=== PATIENT | male | born 1955 | race Caucasian/White ===

== ENCOUNTER 2017-05-18 14:18 | Emergency (ER) | payer BC ==
[~2017-05-18] VITALS: Ht 185.4 cm; Wt 98.7 kg
[2017-05-18 14:19] VITALS: TEMP 36.6; Ht 185.4 cm; Wt 98.7 kg
[2017-05-18] MEDS ORDERED: FISH1CAP3 PO (14:31)
[2017-05-18] MEDS ORDERED: GLUC10007 PO (14:31)
[2017-05-18] MEDS ORDERED: BECL1AER5 NAE (14:31)
[2017-05-18] MEDS ORDERED: CYCL0.052 OP (14:31)
[2017-05-18] MEDS ORDERED: MULT-513 PO (14:31)
[2017-05-18] MEDS ORDERED: OMEP40CA41 PO (14:31)
[2017-05-18] MEDS ORDERED: MONT1TAB5 PO (14:31)
[2017-05-18] MEDS ORDERED: FEXO5TAB2 PO (14:31)
[2017-05-18] MEDS ORDERED: ALBU18002 INH (14:31)
[2017-05-18] MEDS ORDERED: FLUT1INH INH (14:31)
[2017-05-18] MEDS ORDERED: SODIUM CHLORIDE 0.9% 1000ML 1,000 ML IV STA (14:41)
[2017-05-18 15:03] LABS: ALT/SGPT 27 U/L (12-78); BLOOD UREA NITROGEN 16 mg/dl (7-18); BUN/CREATININE RATIO 15.7 (10-20); CARBON DIOXIDE 22 mmol/L (21-32); CHLORIDE 106 mmol/L (98-107); CREATININE 0.99 mg/dl (0.60-1.40); GLUCOSE 89 mg/dl (70-99); POTASSIUM 3.9 mmol/L (3.5-5.1); SODIUM 140 mmol/L (136-145)
--- NOTE | 2017-05-18 15:10 | DIAGNOSTIC IMAGING REPORT ---
CHEST ONE VIEW PORTABLE CLINICAL HISTORY: EVALUATE ALTERED MENTAL STATUS/WEAKNESS COMPARISON STUDY: No previous studies for comparison. FINDINGS: The bones soft tissues and hemidiaphragms are normal. The cardiomediastinal silhouette is normal. The lungs are clear. The pulmonary vasculature is normal. IMPRESSION: Negative chest. The above report was generated using voice recognition software. It may contain grammatical, syntax or spelling errors. Electronically signed by: Forrest Watts M.D. 05/18/2017 3:09 PM Dictated Date/Time: 05/18/2017 3:08 PM
[2017-05-18 15:14] LABS: ALKALINE PHOSPHATASE 95 U/L (45-117); AST/SGOT 21 U/L (15-37); CKMB/CK RATIO 0.7 (0-3.0)
[2017-05-18 15:32] LABS: BASO % 0.4 %; BASO ABS # 0.04 K/uL (0-0.2); COMPLETE YES; EOS % 0.9 %; HEMATOCRIT 41.2 % (42-52); IG% 0.6 %; LYMPH % 13.3 %; LYMPH ABS # 1.24 K/uL (1.2-3.4); MEAN CELL VOLUME 89.4 fL (80-100); MEAN CORPUSCULAR HEMOGLOBIN 29.9 pg (25-34); MEAN CORPUSCULAR HGB CONC 33.5 g/dl (32-36); MEAN PLATELET VOLUME 8.8 fL (7.4-10.4); MONO % 8.8 %; PLATELET COUNT 221 K/uL (130-400); RED BLOOD COUNT 4.61 M/uL (4.7-6.1); WHITE BLOOD COUNT 9.35 K/uL (4.8-10.8)
--- NOTE | 2017-05-18 16:03 | EMERGENCY ROOM VISIT NOTE ---
History Report prepared by [place]miraibramon: Marycarmen Cisneros Under the Supervision of: Dr. Adrián Desouza D.O. First contact with patient: 14:38 Chief Complaint: SYNCOPE Stated Complaint: SYNCOPE Nursing Triage Summary: Pt arrives via BLS. Pt at the [employer] [employer], had 5 beers, was boiling clams, sitting on the cooler, had a syncopal event, falling backwards, was caught by another individual, did not strike his head. On falling, the hot water from the clams dropped on his right 2nd and 3rd toes causing a burn. History of Present Illness The patient is a 62 year old male who presents to the Emergency Room with complaints of an episode of syncope beginning just ICE CARVER. The patient sates that he was tailgating today and was drinking 5-6 beers. He reports that he was steaming clams and burnt two of his toes. The patient states that he did have shoes on when he burnt his toes and quickly took his shoes off and put ice on the injury. After sitting down he notes that he did not feel good and began to feel lightheaded. He states that he lost consciousness and was caught by someone. The patient complains of LOC, toe pain, and his head " not feeling right". He denies any nausea, headache, palpitations, cardiac history, and head injury. He notes that he has a history of allergies and GERD. The patient sates that he felt fine this morning and this afternoon up until he burnt his toes. He notes that he has had a sinus headache over the last few days that is not unusual for him. Source of History: patient Onset: just ICE CARVER Position: other (global) Quality: other (syncope) Timing: other (episode) Associated Symptoms: + LOC, No headache, No nausea Note: He complains of toe pain. He denies any palpitations, cardiac history, and head injury. Review of Systems See HPI for pertinent positives & negatives. A total of 10 systems reviewed and were otherwise negative. Past Medical & Surgical Medical Problems: (1) GERD (gastroesophageal reflux disease) (2) Seasonal allergies Family History No pertinent family history stated. Social History Smoking Status: Never Smoker Marital Status: Housing Status: lives with significant other Occupation Status: employed Current/Historical Medications Scheduled Beclomethasone Dipropionate (N (Qnasl), 1 SPRY MAXINE BID Cyclosporine (Ophth) (Restasis), 1 DROP OP BID Fexofenadine-Pseudoephedrine (Adia-D 12 Hour Allergy), 1 TAB PO BID Fish Oil-Cholecalciferol (Fish Oil + D3), 1 CAP PO DAILY Fluticasone Furoate-Vilanterol (Breo Ellipta), 1 PUFF INH DAILY Glucosamine Sulfate (Glucosamine), 1,500 MG PO DAILY Montelukast Sodium (Montelukast Sodium), 1 TAB PO HS Multivitamins/Minerals (Mvi With Minerals), 1 TAB PO DAILY Omeprazole (Prilosec), 40 MG PO HS Scheduled PRN Albuterol Sulfate (Proair Respiclick), 2 PUFF INH BID PRN for ALLERGIC REACTION Allergies Coded Allergies: Penicillins (Verified Allergy, Unknown, HIVES, 05/18/17) Doxycycline (Verified Adverse Reaction, Unknown, GI SYMPTOMS, 05/18/17) Physical Exam Vital Signs Date Time Temp Pulse Resp B/P (MAP) Pulse Ox O2 Delivery O2 Flow Rate FiO2 05/18/17 16:36 78 18 154/84 99 05/18/17 16:02 79 121/81 77 138/92 93 168/98 05/18/17 15:34 78 18 144/85 99 Room Air 05/18/17 14:22 80 05/18/17 14:19 36.6 77 14 130/79 95 Room Air Physical Exam VITAL SIGNS: were reviewed as above. GENERAL:Non-toxic in appearance. SKIN: Warm dry and pink. HEAD: Normocephalic and atraumatic. OROPHARYNX: Is clear and moist NECK: Supple without lymphadenopathy or meningismus. LUNGS: clear. HEART: Regular rate and rhythm. ABDOMEN: Soft and nontender. EXTREMITIES: Warm and well perfused. Right dorsal toes have erythema related to a boiling water burn. The second and third toes dorsally reveal a small amount of blistering. NEUROLOGICALLY: Awake alert and oriented without focal deficit. Cranial nerves 2 -12 are intact. There is no pronator drift. Cerebellar testing is within normal limits. There is no nystagmus. There is no facial droop. Speech is clear. Vision is grossly normal. MUSCULOSKELETAL: Good muscle tone. No evidence of trauma. Medical Decision & Procedures ER Provider Diagnostic Interpretation: X ray results and stated below per my interpretation and radiology interpretation. CHEST ONE VIEW PORTABLE FINDINGS: The bones soft tissues and hemidiaphragms are normal. The cardiomediastinal silhouette is normal. The lungs are clear. The pulmonary vasculature is normal. IMPRESSION: Negative chest. The above report was generated using voice recognition software. It may contain grammatical, syntax or spelling errors. Electronically signed by: Forrest Watts M.D. 05/18/2017 3:09 PM Dictated Date/Time: 05/18/2017 3:08 PM Laboratory Results 05/18/17 15:24 Red Blood Count 4.61, Mean Corpuscular Volume 89.4, Mean Corpuscular Hemoglobin 29.9, Mean Corpuscular Hemoglobin Concent 33.5, Mean Platelet Volume 8.8, Neutrophils (%) (Auto) 76.0, Lymphocytes (%) (Auto) 13.3, Monocytes (%) (Auto) 8.8, Eosinophils (%) (Auto) 0.9, Basophils (%) (Auto) 0.4, Neutrophils # (Auto) 7.11, Lymphocytes # (Auto) 1.24, Monocytes # (Auto) 0.82, Eosinophils # (Auto) 0.08, Basophils # (Auto) 0.04 05/18/17 14:25 Test 05/18/17 14:25 05/18/17 14:41 05/18/17 15:24 Anion Gap 12.0 mmol/L (3-11) Est Creatinine Clear Calc Drug Dose 98.1 ml/min Estimated GFR () 95.5 Estimated GFR (Non- 82.4 BUN/Creatinine Ratio 15.7 (10-20) Calcium Level 9.0 mg/dl (8.5-10.1) Total Bilirubin 0.4 mg/dl (0.2-1) Aspartate Amino Transf (AST/SGOT) 21 U/L (15-37) Alanine Aminotransferase (ALT/SGPT) 27 U/L (12-78) Alkaline Phosphatase 95 U/L (45-117) Total Creatine Kinase 171 U/L (39-308) Creatine Kinase MB 1.2 ng/ml (0.5-3.6) Troponin I < 0.015 ng/ml (0-0.045) Total Protein 7.7 gm/dl (6.4-8.2) Albumin 3.8 gm/dl (3.4-5.0) Globulin 3.9 gm/dl (2.5-4.0) Albumin/Globulin Ratio 1.0 (0.9-2) Lipase 146 U/L (73-393) Thyroid Stimulating Hormone (TSH) 1.170 uIu/ml (0.300-4.500) Creatine Kinase MB Ratio (0-3.0) White Blood Count 9.35 K/uL (4.8-10.8) Red Blood Count 4.61 M/uL (4.7-6.1) Hemoglobin 13.8 g/dL (14.0-18.0) Hematocrit 41.2 % (42-52) Mean Corpuscular Volume 89.4 fL (80-100) Mean Corpuscular Hemoglobin 29.9 pg (25-34) Mean Corpuscular Hemoglobin Concent 33.5 g/dl (32-36) Platelet Count 221 K/uL (130-400) Mean Platelet Volume 8.8 fL (7.4-10.4) Neutrophils (%) (Auto) 76.0 % Lymphocytes (%) (Auto) 13.3 % Monocytes (%) (Auto) 8.8 % Eosinophils (%) (Auto) 0.9 % Basophils (%) (Auto) 0.4 % Neutrophils # (Auto) 7.11 K/uL (1.4-6.5) Lymphocytes # (Auto) 1.24 K/uL (1.2-3.4) Monocytes # (Auto) 0.82 K/uL (0.11-0.59) Eosinophils # (Auto) 0.08 K/uL (0-0.5) Basophils # (Auto) 0.04 K/uL (0-0.2) RDW Standard Deviation 44.7 fL (36.4-46.3) RDW Coefficient of Variation 13.6 % (11.5-14.5) Immature Granulocyte % (Auto) 0.6 % Immature Granulocyte # (Auto) 0.06 K/uL (0.00-0.02) Laboratory results as stated above per my review. Medications Administered Medications (Trade) Dose Ordered Sig/Neda Route Start Time Stop Time Status Last Admin Dose Admin Sodium Chloride 1,000 ml @ 999 mls/hr Q1H1M STAT IV 05/18/17 14:41 05/18/17 15:41 DC 05/18/17 14:55 999 MLS/HR ECG Indication: syncope Rate (beats per minute): 78 Rhythm: sinus rhythm Findings: PVC, no acute ischemic change ED Course 1438: Previous medical records were reviewed. The patient was evaluated in room C6. A complete history and physical examination was performed. 1441: Sodium Chloride 1000 ml @ 999 mls/hr IV. 1629: On reevaluation, the patient is doing well. I discussed the results and findings with the patient. He verbalized agreement of the treatment plan. The patient was discharged home. Medical Decision Differential includes acute coronary syndrome, myocardial infarction, CVA, TIA, anemia, infection, pneumonia, UTI, pyelonephritis, poor nutrition, dehydration, electrolyte disturbance,hypoglycemia. This is a 62-year-old male who presents to the ED with a chief complaint of syncope. The patient reports that he was at the [facility]. He did not have much to drink this morning. He also had some alcohol last night. The patient states that he spilled some hot water on his right foot causing a burn injury to his right toes. Shortly after this, he sat down and he states that he felt funny in the head and subsequently had a syncopal episode. The patient was lowered to the ground. He did not hurt himself. The patient was transported here for evaluation. His vital signs here are normal. His physical exam was unremarkable other than the burn wounds to his right toes on the dorsal aspect of his foot. He has mostly redness and a couple of toes that have some blistering. The patient's exam was otherwise unremarkable. Neurologically he is normal. Laboratory studies including a CBC and complete metabolic panel were normal. Troponin is negative. TSH is normal. Chest x-ray did not show acute disease. An EKG shows a sinus rhythm at a rate of 78 with an occasional PVC. The patient does not have any sensation or sense of the PVC. This may be chronic. Orthostatic vital signs did not show abnormality. They were done after he was given a liter normal saline. The patient was given Toradol for pain. He is felt to be stable for discharge and outpatient follow-up. The patient's syncope was likely multifactorial that included some dehydration, discomfort and the patient's states that he was upset because of another situation related to tailgating. Medication Reconcilliation Current Medication List: was personally reviewed by me Blood Pressure Screening Patient's blood pressure: Elevated blood pressure Blood pressure disposition: Elevated BP felt to be situational Impression Primary Impression: Syncope Scribe Attestation The scribe's documentation has been prepared under my direction and personally reviewed by me in its entirety. I confirm that the note above accurately reflects all work, treatment, procedures, and medical decision making performed by me. Departure Information Dispostion Home / Self-Care Forms HOME CARE DOCUMENTATION FORM, IMPORTANT VISIT INFORMATION Patient Instructions ED Burn Scald, Fainting (Syncope) - [facility], My [facility] Additional Instructions Take Tylenol or ibuprofen for pain. Apply topical antibiotic to burn wounds 3 times daily. See your doctor for recheck of the burn wounds next week and for recheck for your passing out.
[2017-05-18 16:36] VITALS: BP 154/84; PULSE 78; O2SAT 99
== END 2017-05-18 16:38 | disposition home or self-care (01) ==
LOC: C.EDC 14:21
DX: R55 Syncope and collapse (principal); K21.9 Gastro-esophageal reflux disease without esophagitis; J30.2 Other seasonal allergic rhinitis